=== PATIENT | male | born 1960 | race Caucasian/White ===

== ENCOUNTER 2018-08-15 22:28 | Emergency (ER) | payer BC ==
[~2018-08-15] VITALS: Ht 180.3 cm; Wt 78.5 kg
[2018-08-16 00:26] VITALS: BP 133/89
== END 2018-08-16 00:28 | disposition home or self-care (01) ==
LOC: ER 22:28
DX: S01.511A Laceration without foreign body of lip, initial encounter (principal); Z87.891 Personal history of nicotine dependence; Z91.041 Radiographic dye allergy status; W22.8XXA Striking against or struck by other objects, initial encounter; Y92.89 Other specified places as the place of occurrence of the external cause; Y93.89 Activity, other specified; Y99.8 Other external cause status